=== PATIENT | female | born 1965 | race Caucasian/White ===

== ENCOUNTER 2018-01-07 09:14 | Emergency (ER) | payer OTHER ==
--- OUTSIDE RECORDS SUMMARY | 2018-01-07 09:16 | XMS REPORT ---
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 Active organic factor Problem Pure hyperglyceridemia E78.1 Active Problem Hereditary and idiopathic G60.9 Active peripheral neuropathy Problem Pendulous breast N64.89 Active Problem Type 2 diabetes mellitus without E11.9 Active complication, unspecified whether usp insulin use Problem Low back pain M54.5 Active Problem Spondylosis of unspecified site M47.9 Active without mention of myelopathy Problem Obstructive sleep apnea syndrome G47.33 Active Problem Murmur, cardiac R01.1 Active Problem Other chronic pain G89.29 Active Problem Multilevel degenerative disc M53.9 Active disease Problem Hypokalemia E87.6 Active Problem Nausea R11.0 Active Problem Spinal stenosis of lumbar region M48.061 Active without neurogenic claudication Problem Chronic hepatitis C with hepatic B18.2 Active coma Problem Other migraine with status G43.801 Active migrainosus, not intractable Problem Seasonal allergic rhinitis, J30.2 Active unspecified trigger Problem Anxiety disorder, unspecified type F41.9 Active Problem Edema, unspecified type R60.9 Active Problem Chronic GERD K21.9 Active Problem Osteoarthritis of multiple joints, M15.9 Active unspecified osteoarthritis type Problem Irritable bowel syndrome, K58.9 Active unspecified type Problem Chronic obstructive pulmonary J44.9 Active disease, unspecified COPD type Medications No Known Medications Results No Known Results Summary Purpose [employer] Submission
--- OUTSIDE RECORDS SUMMARY | 2018-01-07 09:16 | XMS REPORT ---
[...] mellitus without E11.9 Active complication, unspecified whether sort line insulin use Problem Low back pain M54.5 [...] Medications Results No Known Results Summary Purpose [email or web address] Submission
--- OUTSIDE RECORDS SUMMARY | 2018-01-07 09:16 | XMS REPORT ---
:1965 Author Organization [employer] Care Team Providers Name Role Phone Trisha Rothman Provider Role Unavailable Allergies, Adverse Reactions, Alerts Substance Reaction Event Type codeine hives Drug Allergy Problems Problem Type Condition Code Onset Dates Condition Status Assessment Chest pain, unspecified type R07.9 Active Assessment Pendulous breast N64.89 Active Assessment Neck pain M54.2 Active Assessment Upper back pain M54.9 Active Problem Osteoarthritis of multiple joints, M15.9 Active unspecified osteoarthritis type Assessment Pain of left leg M79.605 Active Problem Chronic obstructive pulmonary J44.9 Active disease, unspecified COPD type Assessment Pain in right leg M79.604 Active Problem 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 Active organic factor Problem Pure hyperglyceridemia E78.1 Active Problem Hereditary and idiopathic G60.9 Active peripheral neuropathy Problem Pendulous breast N64.89 Active Problem Low back pain M54.5 Active Problem Type 2 diabetes mellitus without E11.9 Active complication, unspecified whether fci insulin use Problem Spondylosis of unspecified site M47.9 Active without mention of myelopathy Problem Murmur, cardiac R01.1 Active Problem Obstructive sleep apnea syndrome G47.33 Active Problem Other chronic pain G89.29 Active [...] Active Problem Chronic GERD K21.9 Active Problem Irritable bowel syndrome, K58.9 Active unspecified type Medications Medication Code Code Instructions Start End Status Dosage System Date Date Klor-Con M10 [facility] 65034289326 10 MEQ Orally Nov Active 1 tablet with Daily 05, food [address] [facility] 03584009544 60 MG Orally Active 1 capsule Once a day Nystatin-Triamci [facility] 28721200850 644470-5.1 November Active 1 application nolone UNIT/GM 20, to affected Externally TID 2018 area Neurontin ND 45751989031 300 MG Orally Active 1 capsule Three times a day GlipiZIDE ND 66857174871 5 MG Orally Active 1 tablet BID Clotrimazole ND 12829593370 1 % Externally Active 1 application Twice a day to affected area Metamucil [facility] [address] 3.4g/5.2g Active 1 tsp Orally Daily Trazodone HCl ND 57320833602 50 MG Orally July Active 1 tablet at Once a day , bedtime as 2018 needed [place]on ND 83493168662 01585 UNIT Active 2 capsules Orally QID Triamcinolone & NDC 0 0.1 % Active 1 application Emollient Externally TID Zanaflex ND 83449176831 4 MG Orally Active 1 capsule as Three times a needed day BusPIRone HCl [facility] 27269211134 10 MG Active 1 TAB BID Oxybutynin ND 12826816721 5 MG Orally Active 1 tablet Chloride ER Once a day Ketoconazole ND 23667422836 2 % Externally Active 1 application Twice a day to affected area Albuterol ND 59466423075 90 MCG/ACT Active 1-2 puffs Inhalation Q 6h Zofran ODT ND 03150486664 4 MG Orally Active 1 tablet on TID the tongue and allow to dissolve Topamax [facility] 30980384709 100 MG Orally Active 1 tablet Twice a day Celebrex ND 93579288294 100 MG Orally Active 1 capsule Twice a day with food Econazole [facility] 88691506305 1 % Externally Active 1 application Nitrate BID to affected area Advair Diskus [facility] [address]-93 250-50 Active 2 puffs MCG/DOSE Inhalation Twice a day Fenofibrate ND 13168055846 145 MG Orally Active 1 tablet Once a day ProAir HFA [facility] 62532733061 108 (90 Base) Active 2 puffs as MCG/ACT needed Inhalation Q4-6 hrs prn wheezing/sob Results No Known Results Summary Purpose [employer]Works Submission
--- OUTSIDE RECORDS SUMMARY | 2018-01-07 09:16 | XMS REPORT ---
[...] mellitus without E11.9 Active complication, unspecified whether longterm insulin use Problem Low back pain M54.5 [...] J44.9 Active disease, unspecified COPD type Medications Medication Code Code Instructions Start End Status Dosage System Date Date Clotrimazole [facility] 34540757590 1 % Externally October 04November Active 1 application Twice a day 2017 13, to affected 2018 area Results No Known Results Summary Purpose [employer] Submission
--- OUTSIDE RECORDS SUMMARY | 2018-01-07 09:16 | XMS REPORT ---
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
[2018-01-07] MEDS ORDERED: cloNIDine HCl 0.1 MG TAB ONE (09:43)
[2018-01-07] MEDS ORDERED: DIAZEPAM 10 MG/2 ML INJ SYRINGE ONE (09:48)
--- NOTE | 2018-01-07 10:24 | ER ---
Nurse's Notes [facility] Name: Karen Hernandez Age: 53 yrs Sex: Female : 1965 Arrival Date: 01/07/2018 Time: 09:17 Bed 20 Private MD: Diagnosis: Chronic pain syndrome Presentation: 01/07 09:09 Presenting complaint: EMS states: pt. 53 yr. old, A \T\ O x 4 c/o pain in lower back and rb1 abdomen. Pt. pain pump was shut off last Saturday by Dr. Lovett. History of chronic back pain, diabetes, neuropathy, diverticulitis, pancreatitis. Allergy to codeine. BS 109, BP 176/110, R 20, P 72. Pain 02/26. Pt. has a black eye on the left from a fall two days ago. Transition of care: patient was not received from another setting of care. Onset of symptoms is unknown. Risk Assessment: Do you want to hurt yourself or someone else? Patient reports no desire to harm self or others. Initial Sepsis Screen: Does the patient meet any 2 criteria? No. Patient's initial sepsis screen is negative. Does the patient have a suspected source of infection? No. Patient's initial sepsis screen is negative. Care prior to arrival: None. 09:09 Method Of Arrival: EMS: [facility] 09:09 Acuity: SHAHBAZ 3 rb1 Triage Assessment: 09:09 General: Appears distressed, unkempt, Behavior is crying, Denies fever. Pain: Complains rb1 of pain in back, abdomen Pain currently is 10 out of 10 on a pain scale. Neuro: Level of Consciousness is awake, alert, obeys commands, Oriented to person, place, time, situation. Cardiovascular: Capillary refill < 3 seconds is brisk in bilateral fingers. Respiratory: Airway is patent Respiratory effort is even, unlabored, Respiratory pattern is regular, symmetrical. GI: Reports nausea, vomiting. : No signs and/or symptoms were reported regarding the genitourinary system. Derm: Skin is pink, warm \T\ dry. Bruising that is on left eye. Musculoskeletal: Range of motion: intact in all extremities. 09:09 Derm: Pain pump that had Dilaudid is located on right lower abdomen. 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 - Social history:: Smoking status: Patient uses tobacco products, smokes one pack cigarettes per day. - Ebola Screening: : Patient negative for fever greater than or equal to 101.5 degrees Fahrenheit, and additional compatible Ebola Virus Disease symptoms. - Family history:: not pertinent. - Hospitalizations: : No recent hospitalization is reported. Screenin: Abuse screen: Denies threats or abuse. Nutritional screening: No deficits noted. rb1 Tuberculosis screening: No symptoms or risk factors identified. Fall Risk Fall in past 12 months (25 points). No secondary diagnosis (0 pts). No IV (0 pts). Ambulatory Aid- None/Bed Rest/Nurse Assist (0 pts). Gait- Normal/Bed Rest/Wheelchair (0 pts) Mental Status- Oriented to own ability (0 pts). Total Morales Fall Scale indicates Low Risk Score (25-44 pts). Fall prevention measures have been instituted. Side Rails Up X 2 Placed close to Nursing Station 1:1 attendant Assigned to Pt. Frequent Obs/Assesments occuring As available Patient and Family Educated on Fall Prevention Program and strategies. Assessment: 09:09 General: See triage assessment. rb1 10:08 Reassessment: Patient appears in no apparent distress at this time. Patient and/or rb1 family updated on plan of care and expected duration. Pain level reassessed. Patient is alert, oriented x 3, equal unlabored respirations, skin warm/dry/pink. Pt. is still crying and upset. Provider notified. Vital Signs: 09:09 BP 119 / 102; Pulse 68; Resp 22; Temp 97.5(TE); Pulse Ox 98% on R/A; Weight 72.57 kg rb1 (R); Height 5 ft. 4 in. (162.56 cm) (R); Pain 10/10; 10:08 BP 115 / 66; Pulse 74; Resp 20; Pulse Ox 99% on R/A; rb1 09:09 Body Mass Index 27.46 (72.57 kg, 162.56 cm) rb1 ED Course: 09:09 Arm band placed on right wrist. rb1 09:09 Patient has correct armband on for positive identification. Bed in low position. Call rb1 light in reach. Side rails up X2. Pulse ox on. NIBP on. Warm blanket given. Pillow given. 09:17 Patient arrived in ED. 09:18 Linda Bolaños, RN is Primary Nurse. rb1 09:20 Juan Carlos Carrizales MD is Attending Physician. rn 09:24 Triage completed. rb1 10:33 No provider procedures requiring assistance completed. Patient did not have IV access rb1 during this emergency room visit. Administered Medications: 09:45 Drug: cloNIDine 0.1 mg Route: PO; rb1 :46 Drug: Valium 5 mg Route: IM; Site: right deltoid; rb1 Outcome: 10:23 Discharge ordered by MD. rn 10:33 Patient left the ED. rb1 10:33 Discharged to home ambulatory. rb1 10:33 Condition: stable 10:33 Discharge instructions given to patient, Instructed on discharge instructions, follow up and referral plans. medication usage, Demonstrated understanding of instructions, follow-up care, medications, Prescriptions given X 1. Signatures: Juan Carlos Carrizales MD MD rn Smirch, Shelby, RN RN Linda Bolaños, GUALBERTO RN [facility]
--- NOTE | 2018-01-07 10:24 | EDPHYS ---
Physician Documentation [facility] Name: Karen Hernandez Age: 53 yrs Sex: Female : 1965 Arrival Date: 01/07/2018 Time: 09:17 Bed 20 Private MD: ED Physician Juan Carlos Carrizales HPI: 01/07 09:27 This 53 yrs old Female presents to ER via EMS with complaints of withdrawal. rn 09:27 Reports has had 3 pain pumps since 1997 with morphine/dilaudid, states her pain rn management doctor turned off her pain pump this past week, has felt chills/nausea/body aches since then, no syncope/chest pain/sob, saw her pcp this AM, he stated wouldn't turn pump back on or give her narcotics, patient upset, called 911, "as last resort", states needs pain medication so her pain can stop. NO new injuries or problems.. Onset: The symptoms/episode began/occurred 1 week(s) ago. Severity of symptoms: At their worst the symptoms were in the emergency department the symptoms are unchanged. The patient has experienced similar episodes in the past. The patient has been recently seen by a physician:. 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 - Social history:: Smoking status: Patient uses tobacco products, smokes one pack cigarettes per day. - Ebola Screening: : Patient negative for fever greater than or equal to 101.5 degrees Fahrenheit, and additional compatible Ebola Virus Disease symptoms. - Family history:: not pertinent. - Hospitalizations: : No recent hospitalization is reported. ROS: 09:27 Constitutional: Negative for weight loss, Eyes: Negative for injury, pain, redness, and home care manager rn, Neck: Negative for injury, pain, and swelling, Cardiovascular: Negative for chest pain, and edema, Respiratory: Negative for shortness of breath, cough, wheezing, and pleuritic chest pain, Abdomen/GI: Negative for constipation MS/Extremity: Negative for injury and deformity, Skin: Negative for injury, rash, and discoloration, Neuro: Negative for headache, seizure Exam: 09:27 Constitutional: This is a well developed, well nourished patient who is awake, alert, rn crying Head/Face: Normocephalic, atraumatic. Eyes: Pupils equal round and reactive to light, extra-ocular motions intact. Lids and lashes normal. Conjunctiva and sclera are non-icteric and not injected. Cornea within normal limits. Periorbital areas with no swelling, redness, or edema. ENT: MMM Cardiovascular: Regular rate and rhythm with a normal S1 and S2. No gallops, murmurs, or rubs. Normal PMI, no JVD. No pulse deficits. Respiratory: hyperventilating while crying, no wheezing, no retractions Abdomen/GI: Soft, non-tender Skin: Warm, dry with normal turgor. MS/ Extremity: Pulses equal, no cyanosis. Neurovascular intact. Full, normal range of motion. Equal circumference. No tremor Neuro: Awake and alert, GCS 15, oriented to person, place, time, and situation. Cranial nerves II-XII grossly intact. Motor strength 4/5 in all extremities. Sensory grossly intact. Vital Signs: 09:09 BP 119 / 102; Pulse 68; Resp 22; Temp 97.5(TE); Pulse Ox 98% on R/A; Weight 72.57 kg rb1 (R); Height 5 ft. 4 in. (162.56 cm) (R); Pain 10/10; 10:08 BP 115 / 66; Pulse 74; Resp 20; Pulse Ox 99% on R/A; rb1 09:09 Body Mass Index 27.46 (72.57 kg, 162.56 cm) rb1 MDM: 09:20 Patient medically screened. rn 10:22 Differential Diagnosis opiate withdrawal. Data reviewed: vital signs, nurses notes, and rn as a result, I will discharge patient. Counseling: I had a detailed discussion with the patient and/or guardian regarding: the historical points, exam findings, and any diagnostic results supporting the discharge/admit diagnosis, the need for outpatient follow up. Response to treatment: the patient's symptoms have mildly improved after treatment, and as a result, I will discharge patient. Special discussion: I discussed with the patient/guardian in detail that at this point there is no indication for admission to the hospital. It is understood, however, that if the symptoms persist or worsen the patient needs to return immediately for re-evaluation. Based on the history and exam findings, there is no indication for further emergent testing or inpatient evaluation. 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 10:24 ED course: Recommended outpt f/u with pain management and pcp for opiate management.. rn Administered Medications: 09:45 Drug: cloNIDine 0.1 mg Route: PO; rb1 09:46 Drug: Valium 5 mg Route: IM; Site: right deltoid; rb1 Disposition: 01/07/18 10:23 Discharged to Home. Impression: Chronic pain syndrome. - Condition is Stable. - Discharge Instructions: Chronic Pain, Opioid Withdrawal. - Prescriptions for Valium 2 mg Oral Tablet - take 1 tablet by ORAL route every 8 hours As needed; 5 tablet. - Medication Reconciliation Form, Thank You Letter, Antibiotic Education, Prescription Opioid Use form. - Follow up: Private Physician; When: As needed; Reason: Recheck today's complaints, Re-evaluation by your physician. - Problem is new. - Symptoms have improved. Signatures: Juan Carlos Carrizales MD MD rn Barber, Rebecca, RN RN rb1 Corrections: (The following items were deleted from the chart) 10:33 10:23 01/07/2018 10:23 Discharged to Home. Impression: Chronic pain syndrome. Condition rb1 is Stable. Forms are Medication Reconciliation Form, Thank You Letter, Antibiotic Education, Prescription Opioid Use. Follow up: Private Physician; When: As needed; Reason: Recheck today's complaints, Re-evaluation by your physician. Problem is new. Symptoms have improved. rn
== END 2018-01-07 10:33 | disposition home or self-care (01) ==
LOC: ER 09:14
DX: G89.4 Chronic pain syndrome (principal); T40.2X5A Adverse effect of other opioids, initial encounter; F17.210 Nicotine dependence, cigarettes, uncomplicated; E11.9 Type 2 diabetes mellitus without complications; Z88.5 Allergy status to narcotic agent
CPT/HCPCS: 96372; 99284; J3360